=== PATIENT | female | born 1980 | race American Indian/Alaskan Native ===

== ENCOUNTER 2019-06-07 05:36 | Observation (INO) | payer BC ==
--- NOTE | 2019-06-03 11:58 | Anesthesia Consultation ---
Anesthesia Consult and Med Hx Date of service: 06/07/19 - Airway Anesthetic Teeth Evaluation: Good, Crowns (upper right) ROM Head & Neck: Adequate Mental/Hyoid Distance: Adequate Mallampati Class: Class III Intubation Access Assessment: Possibly Difficult - Pulmonary Exam CTA: Yes - Cardiac Exam Cardiac Exam: RRR - Pre-Operative Health Status ASA Pre-Surgery Classification: ASA2 Proposed Anesthetic Plan: General Nerve Block: TAP - Pulmonary Hx Smoking: No Hx Respiratory Symptoms: No - Cardiovascular System Hx Hypertension: No Hx Heart Attack/AMI: No - Central Nervous System CVA: No Hx Psychiatric Problems: Yes (anxiety) - Gastrointestinal Hx Gastroesophageal Reflux Disease: No - Endocrine Hx Renal Disease: No Hx Liver Disease: No Hx Insulin Dependent Diabetes: No Hx Non-Insulin Dependent Diabetes: No Hx Thyroid Disease: No - Hematic Hx Anemia: Yes (most recent transfusion 06/2018) - Other Systems Hx Alcohol Use: Yes (Occas) Hx Obesity: Yes (BMI 50) - Additional Comments Anesthesia Medical History Comments: No hx anesthetic complications.
[2019-06-03 12:35] LABS: Basophils % (Auto) 0.1 % (0.0-1.8); Eosinophils # (Auto) 0.1 K/mm3 (0.0-0.4); Eosinophils % (Auto) 2.1 % (0.0-4.3); Hematocrit 32.4 % (30.3-42.9); Hemoglobin 10.2 gm/dl (10.1-14.3); Lymphocytes # (Auto) 1.5 K/mm3 (1.2-5.4); Lymphocytes % (Auto) 27.4 % (13.4-35.0); Mean Corpuscular HGB Conc 31 % (30-34); Mean Corpuscular Volume 69 fl (79-97); Monocytes # (Auto) 0.4 K/mm3 (0.0-0.8); Monocytes % (Auto) 7.8 % (0.0-7.3); Platelet Count 271 K/mm3 (140-440); Red Blood Count 4.66 M/mm3 (3.65-5.03); Red Cell Distribution Width 18.2 % (13.2-15.2)
--- NOTE | 2019-06-06 16:08 | History and Physical Report ---
History of Present Illness Date of examination: 05/31/19 Chief complaint: She complains of heavy bleeding, dysmenorrhea, history of fibroids and cramping, History of present illness: This is a 38 years old female who presents with menstrual disorder. The symptoms began >1 year ago. She complains of heavy bleeding, dysmenorrhea, history of fibroids and cramping, but denies irregular menses, mid-cycle spotting, lack of menses, clotting, history of ovarian cysts, history of thyroid disease, history of PCOS, history of bleeding disorder, lightheadedness and fatigue. She had [place] and bleeding became heavier immediately after. She required Fe infusions x3 and had a Mirena placed 04/2018. She bled all 05/2018. She was evaluated at [facility] 06/2018 and was diagnosed with anemia and admitted for 2uPRBCs. She was given Provera po and Lysteda to control her bleeding. She was then evaluated at a [facility] [place] and had an US that revealed no IUD present. She was started on Nuva Ring contnuous therapy (changing ring [id number]). Had only spotting July and August of this year then she started bleeding heavier by 10/2018. She started taking Provera d aily when bleeding increases.She's had continued intermittent menorrhagia and breakthrough bleeding with this regimen. States she was told the submucosal fibroid could only be partially resected when she had the hysteroscopic myomectomy. SIS confirms the presence of what appears to be intramural fibroid with < 50% within the cavity of the uterus. Past History : 0 BASKETBALL SCOUT History Operations: Myomectomy (02/21/2018) hysteroscopic Oral (2017) Abnormal PAP: negative Infection History HIV Risk Eval: no Hx of STD: None Active Medications (reviewed today): FERROUS SULFATE IRON TABLET (FERROUS SULFATE DRIED TABS) NUVARING 0.12-0.015 MG/24HR VAGINAL RING (ETONOGESTREL-ETHINYL ESTRADIOL) 1ring, inserted vaginally leave in place for 3 consecutive weeks, removed for 1 week.Iinsert new ring 7 days after the last was removed TRAZODONE HCL TABLET (TRAZODONE HCL TABS) CELEXA 20 MG ORAL TABLET (CITALOPRAM HYDROBROMIDE) 1 po qd Current Allergies (reviewed today): No known allergies Past Medical History: Reviewed history from 12/10/2018 and no changes required: Anxiety insomnia Blood Transfusion (06/2018) (2u) Fe Infusion (03/2018) Anemia Past Surgical History: Reviewed history from 12/10/2018 and no changes required: Myomectomy (02/21/2018) hysteroscopic Oral (2018) Family History Summary: Reviewed history and no changes required: 06/06/2019 Father (biol.) - Has Family History of Prostate Cancer - Entered On: 12/10/2018 Other family member - Has No Family History of Biliary Tract Cancer - Entered On: 12/10/2018 Other family member - Has No Family History of Breast Cancer - Entered On: 12/10/2018 Other family member - Has No Family History of Brain Cancer - Entered On: 12/10/2018 Other family member - Has No Family History of Colon Cancer - Entered On: 12/10/2018 Other family member - Has No Family History of Spontaneous DVT-PE - Entered On: 12/10/2018 Other family member - Has No Family History of Kidney/Urinary Tract Cancer - Entered On: 12/10/2018 Other family member - Has No Family History of Ovarvian Cancer - Entered On: 12/10/2018 Other family member - Has No Family History of Pancreatic Cancer - Entered On: 12/10/2018 Other family member - Has No Family History of Stomach Cancer - Entered On: 12/10/2018 Other family member - Has No Family History of Small Bowel Cancer - Entered On: 12/10/2018 Other family member - Has No Family History of Uterine Cancer - Entered On: 12/10/2018 General Comments - FH: Mother AML leukemia Social History: Reviewed history from 12/10/2018 and no changes required: Patient is single Smoking History: Patient has never smoked. Risk Factors: Smoked Tobacco Use: Never smoker Smokeless Tobacco Use: Never Drug use: no HIV high-risk behavior: no Alcohol use: yes Exercise: yes Seatbelt use: 100 % PAP Smear History: Date of Last PAP Smear: 12/10/2018 Previous Tobacco Use: Signed On 04/19/2019 Smoked Tobacco Use: Never smoker Smokeless Tobacco Use: Never Drug use: no HIV high-risk behavior: no Previous Alcohol Use: Signed On 04/19/2019 Alcohol use: yes Drinks per day: social Exercise: yes Type of Exercise: water aerobics Seatbelt use: 100 % PAP Smear History: Date of Last PAP Smear: 12/10/2018 Physical Exam Appearance: well developed, well nourished, no acute distress Other Exams Lungs: no rales, rhonchi, or wheezes Heart: S1, S2, no murmur, rub, or gallop Abdomen: soft, non-tender, no masses, bowel sounds normal Genitourinary Exam Uterus: deferred for EUA Impression & Recommendations: Problem # 1: Excessive and frequent menstruation with irregular cycle (ICD- 626.6) ([id number]) Her updated medication list for this problem includes: Nuvaring 0.12-0.015 Mg/24hr Vaginal Ring (Etonogestrel-ethinyl estradiol) ..... 1ring, inserted vaginally leave in place for 3 consecutive weeks, removed for 1 week.iinsert new ring 7 days after the last was removed Diagnosis explained to patient . Discussed with patient various medical, surgical and radiological therapies common for treatment including, but not limited to, myomectomy, hysterectomy and uterine artery embolization. Discussed risks and benefits of laparotomy and laparoscopy, and robotic assisted approaches for myomectomy. Patient desires to proceed with robot assisted laparoscopic removal of fibroid(s). The risks and alternatives for this surgery were reviewed with the patient. She was informed of the risks of the surgery including, but not limited to, pain, infection, bleeding possibly heavy enough to require a blood transfusion with associated risks of infections (hepatitis and HIV) and transfusion reactions, possible damage to bowel, bladder or ureter(s). She desires fertility but understands that this procedure may cause adhesions or inadvertent injury may occur to the tubes or uterus that may make her sterile. Indications to abort a robotic/laparoscopic procedure and perform an open procedure were explained. Problem # 2: Fibroids of uterus, Submucosal (ICD-218.0) (FDQ02-R18.0) Diagnosis explained to patient . Questions answered. Discussed with patient various medical, surgical and radioloigal therapies common for treatment: Hor monal/medical therapy, fibroid embolization, removal of fibroids or hysterectomy She desires laparoscopic myomectomy. Patient advised the small risks of spreading of malignancy if morcellation is r equired during the surgery patient understands and approves performing if necessary. Questions answered. Consent reviewed and signed The patient was instructed/informed the following: The normal length of hospital stay for this procedure. Nothing to eat or drink after midnight the evening prior to surgery. Clear liquids the day before surgery. Pre-op instruction sheets given. Wound care instructions given. Her updated medication list for this problem includes: Nuvaring 0.12-0.015 Mg/24hr Vaginal Ring (Etonogestrel-ethinyl estradiol) ..... 1ring, inserted vaginally leave in place for 3 consecutive weeks, removed for 1 week.iinsert new ring 7 days after the last was removed Medications Added to Medication List This Visit: 1) Ferrous Sulfate Iron Tablet (Ferrous sulfate dried tabs) 2) Trazodone Hcl Tablet (Trazodone hcl tabs) 3) Celexa 20 Mg Oral Tablet (Citalopram hydrobromide) .... 1 po qd Medications and Allergies Allergies Allergy/AdvReac Type Severity Reaction Status Date / Time No Known Allergies Allergy Verified 06/03/19 12:14 Home Medications Medication Instructions Recorded Confirmed Last Taken Type Citalopram [celeXA] 35 mg PO QDAY 05/28/19 05/28/19 Unknown History Ergocalciferol [Vitamin D2] 1 cap PO QWEEK 05/28/19 05/28/19 Unknown History Etonogestrel/Ethinyl Estradiol 1 each VG QMONTH 05/28/19 05/28/19 Unknown History [Nuvaring Vaginal Ring] Iron [Iron 18 MG TAB] 55 mg PO QDAY 05/28/19 05/28/19 Unknown History traZODone [Desyrel] 100 mg PO QHS 05/28/19 05/28/19 Unknown History Active Meds: Active Medications Celecoxib (Celebrex) 200 mg PO PREOP NR Stop: 06/07/19 21:00 Fentanyl (Sublimaze) 100 mcg IV ONCE PRN PRN Reason: sedation for nerve block Stop: 06/07/19 21:00 Gabapentin (Gabapentin) 300 mg PO PREOP NR Stop: 06/07/19 21:00 Lactated Ringer's (Lactated Ringers) 1,000 mls @ 100 mls/hr IV DIRECT CANDELARIA Cefazolin Sodium 3 gm/ Sodium (Chloride) 100 mls @ 100 mls/30 min IV PREOP NR; Protocol Midazolam HCl (Versed) 2 mg IV PREOP NR Stop: 06/07/19 21:00 Trazodone HCl (Desyrel) 100 mg PO QHS CANDELARIA Exam Vital Signs Temp Pulse Resp BP Pulse Ox 98 F 72 18 148/77 99 06/03/19 11:30 06/03/19 11:30 06/03/19 11:30 06/03/19 11:30 06/03/19 11:30 Results - Labs 06/03/19 11:40
[2019-06-07] MEDS ORDERED: MIDAZOLAM 2 MG/2 ML INJ IV NR (06:00)
[2019-06-07] MEDS ORDERED: fentaNYL 100 MCG/2 ML INJ IV PRN (06:00)
[2019-06-07] MEDS ORDERED: LACTATED RINGERS 1,000 ML IV SCH (06:00)
[2019-06-07] MEDS ORDERED: CELECOXIB 200 MG CAP PO NR (06:00)
[2019-06-07] MEDS ORDERED: GABAPENTIN 300 MG CAP PO NR (06:00)
[2019-06-07] MEDS ORDERED: VASOPRESSIN 20 UNIT/1 ML INJ ONE (06:48)
[2019-06-07] MEDS ORDERED: SODIUM CHLORIDE 0.9% 100 ML ONE (06:48)
[2019-06-07] MEDS ORDERED: BACTERIOSTATIC SODIUM CHLORIDE 0.9% 30 ML VIAL INFILTRATI ONE (06:54)
[2019-06-07] MEDS ORDERED: BUPIVACAINE/PF (0.25%) 2.5 MG/ML 30 ML VIAL INFILTRATI ONE (06:56)
[2019-06-07] MEDS ORDERED: LIDOCAINE (1%) 10 MG/1 ML VIAL 20 ML MDV ONE (06:56)
--- NOTE | 2019-06-07 07:12 | Anesthesia Day of Surgery ---
Anesthesia Day of Surgery - Day of Surgery Patient Examined: Yes Patient H&P Reviewed: Yes Patient is NPO: Yes
[2019-06-07] MEDS ORDERED: CITRIC ACID-SOD CITRATE 500 ML IV ONE (07:24)
[2019-06-07] MEDS ORDERED: CALCIUM CHLORIDE 1,000 MG/10 ML SYRINGE IV ONE ×2 (07:24→08:51)
[2019-06-07] MEDS ORDERED: THROMBIN (RECOMBINANT) 5,000 UNIT VIAL TP ONE ×2 (07:24→08:51)
[2019-06-07] MEDS ORDERED: HYDROmorphone 1 MG/1 ML INJ ONE (07:44)
[2019-06-07] MEDS ORDERED: PROPOFOL 200 MG/20 ML VIAL IV ONE (07:45)
[2019-06-07] MEDS ORDERED: ceFAZolin 1 GM VIAL ONE (08:11)
[2019-06-07] MEDS ORDERED: LIDOCAINE MPF (2%) 20 MG/1 ML VIAL 5 ML ONE (08:11)
[2019-06-07] MEDS ORDERED: ROCURONIUM 50 MG/5 ML INJ IV ONE ×2 (08:11→08:40)
[2019-06-07] MEDS ORDERED: ESMOLOL 100 MG/10 ML INJ IV ONE (08:11)
[2019-06-07] MEDS ORDERED: VASOPRESSIN 20 UNIT/1 ML INJ IM ONE (08:48)
[2019-06-07] MEDS ORDERED: SODIUM CHLORIDE 0.9% 100 ML IVPB IV ONE (08:49)
[2019-06-07] MEDS ORDERED: SODIUM CHLORIDE 0.9% IRR 1,500 ML BOTTLE IR ONE (08:50)
[2019-06-07] MEDS ORDERED: CITRIC ACID-SOD CITRATE SOLN 500 ML IV SOLN IV ONE (08:52)
[2019-06-07] MEDS ORDERED: ONDANSETRON 4 MG/2 ML INJ ONE (10:35)
[2019-06-07] MEDS ORDERED: GLYCOPYRROLATE 0.4 MG/2 ML INJ ONE (10:35)
[2019-06-07] MEDS ORDERED: NEOSTIGMINE 10MG/10 ML INJ MDV ONE (10:35)
--- NOTE | 2019-06-07 10:54 | Post Operative Note ---
Pre-op diagnosis: menometrorrhagia, anemia, fibroid Post-op diagnosis: same Findings: ~5cm fibroid, ?adenomyosis, grossly normal tubes and ovaries Procedure: RAL myomectomy Anesthesia: GETA Surgeon: JAMAICA PINO Estimated blood loss: other (300, received 125mL cellsaved PRBC) Pathology: list (fibroid and myometrial tissue) Specimen disposition: to lab Condition: stable Disposition: PACU
[2019-06-07] MEDS ORDERED: KETOROLAC 30 MG/1 ML INJ ONE (10:56)
[2019-06-07] MEDS: HYDROmorphone 1 MG/1 ML INJ IV PRN ×2 (11:03→11:15)
--- NOTE | 2019-06-07 11:24 | Operative Report ---
Operative Report Operative Report: Date: 06/07/2019 Preoperative diagnosis: 1. Severe menometrorrhagia 2. Uterine fibroid 3. Body mass index of 50 kg/m 4. Anxiety 5. Anemia Postoperative diagnosis: 1. Severe menometrorrhagia 2. Uterine fibroid 3. Body mass index of 50 kg/m 4. Anxiety 5. Anemia Procedure: 1. Robotic-assisted laparoscopic myomectomy Surgeon: Marilee Lan MD Finance Executive: Luciana Peterson Anesthesiologist: Dr. Whitehead Anesthesia: General endotracheal anesthesia EBL: Approximately 300 mL Findings: Uterus was sounded to 9 cm. Grossly normal tubes and ovaries. Patient received 125 mL's of cell saved packed red blood cells Procedure: Patient was taken to the OR and placed in the supine position. General anesthesia was induced and an oral gastric tube was placed. Her neck and head were placed on foam support. Foam eye protection with goggles were secured in place. Then foam face protection was placed and secured. Foam shoulder pads were then positioned on her shoulders for Trendelenburg positioning. She was then placed in dorsolithotomy position. Exam under anesthesia unremarkable, however difficult to palpate due to body mass index. The abdomen and vagina were then prepped and draped in the usual sterile fash ion. Timeout was performed. A Banks catheter was inserted into the bladder with drainage of clear yellow urine. The operative speculum was introduced into the vagina and the anterior lip of the cervix was grasped with single-toothed tenaculum. The uterus was sounded to 8 cm. The cervix was progressively dilated to allow the medium V care uterine manipulator. The bulb of the manipulator was inflated and the speculum and tenaculum were removed. The cup of the manipulator was placed around the cervix and the blue occluder of the manipulator was properly positioned in the vagina. A laparotomy sponge that was saturated with a solution of polymyxin and saline was placed in the vagina to ensure pneumoperitoneum. Sterile gloves were placed and attention was turned to the abdomen. A 10 mm midline vertical supraumbilical incision was made approximately 6 cm superior to the elevated fundus of the uterus. A 12 mm trocar with the laparoscope and camera attached was introduced through this incision under direct visualization. The abdomen was insufflated. No obvious bowel, bladder, ureteral, or major vascular injury was noted. The patient was then placed in steep Trendelenburg position and the following trochars were placed under direct visualization: 8 mm robotic trochars were placed through incisions made in the bilateral midclavicular lower abdominal region approximately 10 cm lateral to the midline incision, and a 10 mm trocar was placed through an incision made in the right lower lateral pelvis. The 10 mm laparoscope was then placed in the 10 mm lateral trocar. The 12 mm midline trocar was then removed and the Fabio Johnson fascial closure device was placed through the incision and a 0 Vicryl was placed through the fascia. Once the suture was secured the 12 mm trocar was reintroduced. The 10 mm laparoscope was then placed through the midline trocar again, and the right lateral trocar was removed, the Fabio Johnson fascial closure device was introduced a 0 Vicryl was placed through the fascia. Then the lateral trocar was reintroduced. Once the trochars were in the appropriate positions, the da Alba robot system was engaged. The EndoShears and bipolar device was placed through the 8 mm trochars and positioned then attention was turned to the console. Approximately 15 mL's of Pitressin (20 units in 100 mL's of normal saline) was infused in the posterior aspect of the uterus. A midline incision was made on the posterior aspect and extended down to the fibroid. The fibroid was then released. It was placed in a Endo Catch bag. The endometrial cavity was entered while removing the fibroid. Then the uterine incision was reapproximated using 0 V loc suture in a running interlocking stitch. Care was taken to ensure that the cavity was not sutured close during the repair. The incision was reinforced using another 0 V loc in a running interlocking fashion. Hemostasis was further obtained with electrocoagulation. Once hemostasis was noted attention was turned to the right lower lateral incision. The morcellator was introduced through the incision and into the Endo Catch bag. The fibroid was then morcellated within the bag. No bowel bladder or ureteral or major vascular injury was noted. No spillage of fibroid tissue into the cavity was noted. The morcellator was removed and the Endo Catch bag was removed with remaining carpal tissue. Attention was then turned to the pelvis. The uterus was elevated and the pelvis was irrigated with warm normal saline. Once hemostasis was noted, platelet rich plasma, Rosemarie and Surgicel were applied to the operative field to ensure hemostasis. Then Interceed was applied to the operative field to decrease formation of adhesions. Again hemostasis was noted. Then the instruments were removed, the robot was disengaged. The 12 mm trocars were removed and the fascial defects were ligated with the 0 Vicryl sutures placed at the beginning of the procedure. The patient was taken out of Trendelenburg position, the abdomen was desufflated, the remaining trochars were removed. Incisions were reapproximated using 4-0 Vicryl in a subcuticular manner. . Surgiseal was placed over the other incisions. The V care uterine manipulator was removed. The vagina was then inspected, no bleeding was noted and clear yellow urine was draining into the Banks bag from the bladder at the end of the procedure. Counts were correct 3. Patient was taken to recovery room in stable condition.
[2019-06-07] MEDS ORDERED: MORPHINE 2 MG/1 ML INJ IV PRN (12:30)
[2019-06-07] MEDS ORDERED: ONDANSETRON 4 MG ODT TAB PO PRN (12:30)
[2019-06-07] MEDS ORDERED: METOCLOPRAMIDE 10 MG TAB PO PRN (12:30)
[2019-06-07] MEDS ORDERED: MORPHINE 4 MG/1 ML INJ IV PRN (12:30)
[2019-06-07] MEDS ORDERED: SODIUM CHLORIDE 0.9% 1000 ML 1,000 ML IV SCH (12:30)
[2019-06-07] MEDS ORDERED: ACETAMINOPHEN 650 MG RECT SUPP PR PRN (12:30)
[2019-06-07] MEDS ORDERED: METOCLOPRAMIDE 10 MG/2 ML INJ IV PRN (12:30)
[2019-06-07] MEDS ORDERED: ONDANSETRON 4 MG/2 ML INJ IV PRN (12:30)
--- NOTE | 2019-06-07 12:48 | Post Anesthesia Evaluation ---
- Post Anesthesia Evaluation Patient Participated: Yes Airway Patent: Yes Stable Respiratory Function: Yes Nausea/Vomiting: No Temp > 96.8F: Yes Pain Manageable: Yes Adequeate Hydration: Yes Anesthesia Complications: No
[2019-06-07] MEDS: KETOROLAC 30 MG/1 ML INJ IV SCH ×2 (14:43→20:54)
--- NOTE | 2019-06-07 19:37 | Progress Note ---
Assessment and Plan No complaints Operative findings and procedure explained, plan of care discussed, questions encouraged and answered, she voiced understanding - Patient Problems (1) Status post myomectomy Current Visit: Yes Status: Acute (2) Anxiety Current Visit: Yes Status: Chronic (3) Fibroid Current Visit: Yes Status: Resolved Subjective - Subjective Date of service: 06/07/19 Principal diagnosis: DOS, s/p RAL myomectomy Interval history: This is a 38 years old female who presents with menstrual disorder. The symptoms began >1 year ago. She complains of heavy bleeding, dysmenorrhea, history of fibroids and cramping, but denies irregular menses, mid-cycle spotting, lack of menses, clotting, history of ovarian cysts, history of thyroid disease, history of PCOS, history of bleeding disorder, lightheadedness and fatigue. She had a h'scopic m'ectomy 02/2018 ([facility]) and bleeding became heavier immediately after. She required Fe infusions x3 and had a Mirena placed 04/2018. She bled all 05/2018. She was evaluated at [facility] 06/2018 and was diagnosed with anemia and admitted for 2uPRBCs. She was given Provera po and Lysteda to control her bleeding. She was then evaluated at a [facility] clinic and had an US that revealed no IUD present. She was started on Nuva Ring contnuous therapy (changing ring [id number]). Had only spotting July and August of this year then she started bleeding heavier by 10/2018. She started taking Provera daily when bleeding increases.She's had continued intermittent menorrhagia and breakthrough bleeding with this regimen. States she was told the submucosal fibroid could only be partially resected when she had the hysteroscopic myomectomy. SIS confirms the presence of what appears to be intramural fibroid with < 50% within the cavity of the uterus. 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 Operations: Myomectomy (02/21/2018) hysteroscopic Oral (2017) Abnormal PAP: negative Infection History HIV Risk Eval: no Hx of STD: None Active Medications (reviewed today): FERROUS SULFATE IRON TABLET (FERROUS SULFATE DRIED TABS) NUVARING 0.12-0.015 MG/24HR VAGINAL RING (ETONOGESTREL-ETHINYL ESTRADIOL) 1ring, inserted vaginally leave in place for 3 consecutive weeks, removed for 1 week.Iinsert new ring 7 days after the last was removed TRAZODONE HCL TABLET (TRAZODONE HCL TABS) CELEXA 20 MG ORAL TABLET (CITALOPRAM HYDROBROMIDE) 1 po qd Current Allergies (reviewed today): No known allergies Past Medical History: Reviewed history from 12/10/2018 and no changes required: Anxiety insomnia Blood Transfusion (06/2018) (2u) Fe Infusion (03/2018) Anemia Past Surgical History: Reviewed history from 12/10/2018 and no changes required: Myomectomy (02/21/2018) hysteroscopic Oral (2017) Family History Summary: Reviewed history and no changes required: 06/06/2019 Father (biol.) - Has Family History of Prostate Cancer - Entered On: 12/10/2018 Other family member - Has No Family History of Biliary Tract Cancer - Entered On: 12/10/2018 Other family member - Has No Family History of Breast Cancer - Entered On: 12/10/2018 Other family member - Has No Family History of Brain Cancer - Entered On: 12/10/2018 Other family member - Has No Family History of Colon Cancer - Entered On: 12/10/2018 Other family member - Has No Family History of Spontaneous DVT-PE - Entered On: 12/10/2018 Other family member - Has No Family History of Kidney/Urinary Tract Cancer - Entered On: 12/10/2018 Other family member - Has No Family History of Ovarvian Cancer - Entered On: 12/10/2018 Other family member - Has No Family History of Pancreatic Cancer - Entered On: 12/10/2018 Other family member - Has No Family History of Stomach Cancer - Entered On: 12/10/2018 Other family member - Has No Family History of Small Bowel Cancer - Entered On: 12/10/2018 Other family member - Has No Family History of Uterine Cancer - Entered On: 12/10/2018 General Comments - FH: Mother AML leukemia Social History: Reviewed history from 12/10/2018 and no changes required: Patient is single Smoking History: Patient has never smoked. Risk Factors: Smoked Tobacco Use: Never smoker Smokeless Tobacco Use: Never Drug use: no HIV high-risk behavior: no Alcohol use: yes Exercise: yes Seatbelt use: 100 % PAP Smear History: Date of Last PAP Smear: 12/10/2018 Previous Tobacco Use: Signed On - 04/19/2019 Smoked Tobacco Use: Never smoker Smokeless Tobacco Use: Never Drug use: no HIV high-risk behavior: no Previous Alcohol Use: Signed On - 04/19/2019 Alcohol use: yes Drinks per day: social Exercise: yes Type of Exercise: water aerobics Seatbelt use: 100 % PAP Smear History: Date of Last PAP Smear: 12/10/2018 Physical Exam Appearance: well developed, well nourished, no acute distress Other Exams Lungs: no rales, rhonchi, or wheezes Heart: S1, S2, no murmur, rub, or gallop Abdomen: soft, non-tender, no masses, bowel sounds normal Genitourinary Exam Uterus: deferred for EUA Impression & Recommendations: Problem # 1: Excessive and frequent menstruation with irregular cycle (ICD- 626.6) (EBM16-X95.1) Her updated medication list for this problem includes: Nuvaring 0.12-0.015 Mg/24hr Vaginal Ring (Etonogestrel-ethinyl estradiol) ..... 1ring, inserted vaginally leave in place for 3 consecutive weeks, removed for 1 week.iinsert new ring 7 days after the last was removed Diagnosis explained to patient . Discussed with patient various medical, surgical and radiological therapies common for treatment including, but not limited to, myomectomy, hysterectomy and uterine artery embolization. Discussed risks and benefits of laparotomy and laparoscopy, and robotic assisted approaches for myomectomy. Patient desires to proceed with robot assisted laparoscopic removal of fibroid(s). The risks and alternatives for this surgery were reviewed with the patient. She was informed of the risks of the surgery including, but not limited to, pain, infection, bleeding possibly heavy enough to require a blood transfusion with associated risks of infections (hepatitis and HIV) and transfusion reactions, possible damage to bowel, bladder or ureter(s). She desires fertility but understands that this procedure may cause adhesions or inadvertent injury may occur to the tubes or uterus that may make her sterile. Indications to abort a robotic/laparoscopic procedure and perform an open procedure were explained. Problem # 2: Fibroids of uterus, Submucosal (ICD-218.0) (TUZ65-Q94.0) Diagnosis explained to patient . Questions answered. Discussed with patient various medical, surgical and radioloigal therapies common for treatment: Hormonal/medical therapy, fibroid embolization, removal of fibroids or hysterectomy She desires laparoscopic myomectomy. Patient advised the small risks of spreading of malignancy if morcellation is required during the surgery patient understands and approves performing if necessary. Questions answered. Consent reviewed and signed The patient was instructed/informed the following: The normal length of hospital stay for this procedure. Nothing to eat or drink after midnight the evening prior to surgery. Clear liquids the day before surgery. Pre-op instruction sheets given. Wound care instructions given. Her updated medication list for this problem includes: Nuvaring 0.12-0.015 Mg/24hr Vaginal Ring (Etonogestrel-ethinyl estradiol) ..... 1ring, inserted vaginally leave in place for 3 consecutive weeks, removed for 1 week.iinsert new ring 7 days after the last was removed Medications Added to Medication List This Visit: 1) Ferrous Sulfate Iron Tablet (Ferrous sulfate dried tabs) 2) Trazodone Hcl Tablet (Trazodone hcl tabs) 3) Celexa 20 Mg Oral Tablet (Citalopram hydrobromide) .... 1 po qd Patient reports: pain well controlled Objective - Vital Signs Latest vital signs: Vital Signs Temp Pulse Resp BP BP Pulse Ox 06/07/19 18:09 99.3 F 94 H 18 143/64 98 06/07/19 13:25 97.6 F 78 15 157/76 100 06/07/19 12:50 97.7 F 78 15 157/76 100 06/07/19 12:25 98.3 F 87 17 137/65 100 06/07/19 12:10 76 13 128/64 100 06/07/19 11:55 88 12 140/69 100 06/07/19 11:40 97.3 F L 79 12 149/74 100 06/07/19 11:33 12 06/07/19 11:25 72 12 144/74 100 06/07/19 11:15 12 06/07/19 11:10 78 12 147/77 100 06/07/19 11:05 80 14 138/75 100 06/07/19 11:03 12 06/07/19 11:00 84 14 142/74 100 06/07/19 10:55 89 14 140/78 100 06/07/19 10:47 98.1 F 93 H 16 142/69 100 06/07/19 08:02 14 06/07/19 07:24 78 13 132/75 100 06/07/19 07:21 76 12 129/67 100 06/07/19 07:18 82 11 L 143/75 100 06/07/19 07:15 80 12 127/73 97 06/07/19 07:12 80 19 144/67 98 06/07/19 07:09 84 12 139/71 97 06/07/19 07:06 86 14 149/70 98 06/07/19 07:03 95 H 20 114/73 95 06/07/19 06:55 20 06/07/19 06:40 98.1 F 74 20 128/69 98 06/07/19 06:35 98.1 F 74 20 128/69 98 Intake and Output 06/07/19 06/07/19 06/07/19 06:59 14:59 22:59 Intake Total 500 580 Output Total 550 750 Balance -50 -170 Intake: IV 500 100 ceFAZolin 2 GM In NaCl 0. 100 9% 100 ml @ 200 mls/hr IV Q8HR [facility] Rx#:[id number] Oral 480 Output: Urine 550 750 Indwelling Catheter 750 Other: Total, Intake Amount 480 Total, Output Amount 750 Voiding Method Toilet Indwelling Catheter - Exam Breasts: Present: deferred Cardiovascular: Present: Regular rate Lungs: Present: Clear to auscultation, Normal air movement Abdomen: Present: normal appearance, soft, normal bowel sounds. Absent: distention, tenderness
[2019-06-07] MEDS: CITALOPRAM 20 MG TAB PO SCH ×3 (20:56→20:58)
[2019-06-07] MEDS: LACTATED RINGERS 1,000 ML IV SCH (21:09)
[2019-06-07] MEDS ORDERED: traZODone 100 MG TAB PO SCH (22:00)
[2019-06-08] MEDS: KETOROLAC 30 MG/1 ML INJ IV SCH ×2 (02:38→08:43)
[2019-06-08 03:52] LABS: Hematocrit 29.7 % (30.3-42.9); Hemoglobin 9.3 gm/dl (10.1-14.3)
[2019-06-08] MEDS: LACTATED RINGERS 1,000 ML IV SCH (04:52)
[2019-06-08] MEDS: ACETAMINOPHEN 325 MG TAB PO PRN ×2 (06:50→13:53)
[2019-06-08] MEDS ORDERED: KETOROLAC 30 MG/1 ML INJ IV SCH (09:00)
[2019-06-08] MEDS ORDERED: CITALOPRAM 10 MG TAB PO SCH (10:00)
[2019-06-08] MEDS ORDERED: PANTOPRAZOLE 40 MG INJ IV SCH (10:00)
[2019-06-08] MEDS: CITALOPRAM 20 MG TAB PO SCH (10:00)
[2019-06-08] MEDS: oxyCODONE /ACETAMINOPHEN 5-325MG TAB PO PRN ×2 (10:14→17:47)
--- NOTE | 2019-06-08 11:25 | Discharge Summary ---
Providers - Providers Date of Admission: 06/07/19 10:54 Date of discharge: 06/08/19 Attending physician: JAMAICA PINO Primary care physician: PIPING SUPERVISOR Hospitalization Condition: Good Procedures: Robot assisted laparoscopic myomectomy Hospital course: Patient was noted to have a low grade fever this am however no s/s infection. Complains of cramping but no heavy bleeding, denies lightheadedness or dizziness with ambulation. She's tolerating a regular diet and voiding w/o difficulty. Will consider d/c home this pm if AVSS. Patient aware and agrees with plan Disposition: DC-01 TO HOME OR SELFCARE - Discharge Diagnoses (1) Status post myomectomy Status: Acute (2) Anxiety Status: Chronic (3) Fibroid Status: Resolved Core Measure Documentation - Palliative Care Palliative Care/ Comfort Measures: Not Applicable - Core Measures Any of the following diagnoses?: none Exam - Physical Exam Narrative exam: Ambulating in morales. - Constitutional Vitals: Temp Pulse Resp BP Pulse Ox 100.4 F H 96 H 20 133/70 97 06/08/19 07:39 06/08/19 07:39 06/08/19 07:39 06/08/19 07:39 06/08/19 07:39 General appearance: Present: no acute distress, well-nourished - Neck Neck: Present: supple - Respiratory Respiratory effort: normal Respiratory: bilateral: CTA - Cardiovascular Rhythm: regular - Extremities Extremities: no ischemia, No edema (NT) - Abdominal General gastrointestinal: Present: soft, non-tender, non-distended, normal bowel sounds Female genitourinary: Present: deferred - Integumentary Integumentary: Present: clear, warm, dry (Incisions C/D/I, no s/s infection) - Musculoskeletal Musculoskeletal: strength equal bilaterally - Psychiatric Psychiatric: appropriate mood/affect, intact judgment & insight, memory intact, cooperative - Neurologic Neurologic: CNII-XII intact Plan Activity: other (No sex, no driving. Ambulate on your property ~1mile a day. Void every hour. Use your incentive spirometer every hour while awake) Weight Bearing Status: Full Weight Bearing Diet: regular (Eat small meals frequently, avoid spicy, fatty high salt foods) Wound: open to air, keep clean and dry Special Instructions: no heavy lifting (Greater than 25lbs) Care Plan Goals: follow up Plan of Treatment: see notes Health Concerns: obesity Follow up with: PRIMARY CARE,MD [Primary Care Provider] - 7 Days JAMAICA PINO MD [Staff Physician] - (As scheduled) Prescriptions: Ibuprofen [Motrin 800 MG tab] 800 mg PO Q8HR PRN #30 tablet PRN Reason: Pain, Mild (1-3)
[2019-06-08 17:23] VITALS: BP 134/57
== END 2019-06-08 18:30 | disposition home or self-care (01) ==
LOC: OR 05:36 → OB 10:54
PROVIDERS: ADMIT Obstetrics & Gynecology; ATTEND Obstetrics & Gynecology
DX: D25.0 Submucous leiomyoma of uterus (principal); N92.0 Excessive and frequent menstruation with regular cycle; D64.9 Anemia, unspecified; F41.9 Anxiety disorder, unspecified; G47.00 Insomnia, unspecified; Z68.43 Body mass index [BMI] 50.0-59.9, adult; Z98.890 Other specified postprocedural states
CPT/HCPCS: 36415; 58545; 64450; 81025; 85014; 85018; 85025; 86850; 86900; 86901; 88305; 96361; 96365; 96375; 96376; C1765; C1782; C9113; G0378; J0690; J1170; J1885; J2250; J2270; J2405; J2704; J2710; J3010; J7030; J7120; S2900